=== PATIENT | female | born 1980 | race Caucasian/White ===

== ENCOUNTER 2019-01-08 19:44 | Emergency (ER) | payer MEDICAID ==
[~2019-01-08] VITALS: Ht 172.7 cm; Wt 84.1 kg
[~2019-01-08 19:44] MED LIST: NO HOME MEDS; TOP100T PO
[2019-01-08 20:10] VITALS: BP 148/95
[2019-01-08] MEDS ORDERED: ketorolac tromethamine 15mg/ml inj. IM ONE (21:15)
[2019-01-08] MEDS ORDERED: orphenadrine citrate 60mg/2ml inj. IM ONE (21:15)
== END 2019-01-08 21:28 | disposition home or self-care (01) ==
LOC: ER 19:44
DX: G44.209 Tension-type headache, unspecified, not intractable (principal); M54.2 Cervicalgia; G43.909 Migraine, unspecified, not intractable, without status migrainosus; F15.90 Other stimulant use, unspecified, uncomplicated; F11.90 Opioid use, unspecified, uncomplicated; Z90.49 Acquired absence of other specified parts of digestive tract; Z79.899 Other long term (current) drug therapy
CPT/HCPCS: 96372; 99283; J1885; J2360